=== PATIENT | male | born 1980 | race Caucasian/White ===

== ENCOUNTER 2024-08-12 14:18 | Emergency (ER) | payer OTHER, SELFPAY ==
[2024-08-12] VITALS (10 sets, daily range): BP systolic 119–137; BP diastolic 68–94; PULSE 95–111; TEMP 37.6–37.7; O2SAT 98–100; BMI 33.7
--- NOTE | 2024-08-12 14:40 | ECG_ITS ---
[facility] Test Date: 2024-08-12 Pat Name: LUISA HOWELL Department: Room: - Gender: Male [employer]: : 1980 Requested By: [id number] Order Number: [id number] Reading MD: MEJIA DUNN M.D. Measurements Intervals [place] Rate: 100 P: 42 LA: 166 QRS: 33 QRSD: 166 T: 16 QT: 368 QTc: 425 Interpretive Statements 1120 Sinus tachycardia 2450 Right bundle branch block 9150 abnormal ECG Compared to ECG 05/30/2020 14:03:26 Sinus arrhythmia no longer present Short LA interval no longer present Electronically Signed On 08-12-2024 17:17:17 EDT by MEJIA DUNN M.D.
--- NOTE | 2024-08-12 14:43 | ED_ITS ---
HPI HPI - General Adult General Chief complaint: Dizziness Stated complaint: NAUSEA VISION BLURRY WEAKNESS Time Seen by Provider: 08/12/24 14:35 Source: patient Mode of arrival: walk-in Limitations: no limitations History of Present Illness HPI narrative: 44-year-old male presents to the emergency department for several symptoms. His chief complaint is dizziness. He states this started about 10:00 and he has some pressure on the back of his head. No palpitations fever or vomiting. He is seeing a surgeon about a cyst on his back and surgery is planned in a month. No fever. He states his abdomen does not feel right, he states its sort of like nausea but he is not nauseous. He does not have any abdominal pain. No fever or cough or chest pain or shortness of breath or palpitations. Related Data Allergies Allergy/AdvReac Type Severity Reaction Status Date / Time acetaminophen (From Vicodin) AdvReac Mild Rash Verified 08/12/24 14:27 hydrocodone (From Vicodin) AdvReac Mild Rash Verified 08/12/24 14:27 Opioid HPI Opioid Management Most Recent Opioid Data: Last Pain Scale 5 08/12/24 17:01 08/12/24 Last MAR Pain Assessment 08/12/24 17:01 Review of Systems ROS Narrative A ten point review of systems is negative except as noted above. PFSH PFSH Social History Little interest or pleasure in doing things: not at all Feeling down, depressed, or hopeless: not at all Exam Narrative Exam Narrative: Nurses note and vital signs reviewed and patient is not hypoxic. General: The patient appears well and in no apparent distress. Patient is resting comfortably on cart. Skin: Warm, dry, no pallor noted. There is no rash noted. On his back is an area that is erythematous and mildly swollen. There is an open area and a small amount of purulent drainage Head: Normocephalic, atraumatic Eye: Normal conjunctiva, no drainage Ears, Nose, Mouth, and Throat: oral mucosa is moist. Nares patent. Cardiovascular: Regular Rate and Rhythm Respiratory: Patient is in no distress, no accessory muscle use, lungs are clear to auscultation, no wheezing, rales or rhonchi Back: no CVA tenderness bilaterally to percussion. GI: Soft and nontender Musculoskeletal: The patient has no evidence of calf tenderness, no pitting edema, symmetrical pulses noted bilaterally Neurological: A&O, normal speech; upper and lower extremity strength intact and symmetric Psychiatric: Cooperative Constitutional Vital Signs, click to edit/add: Last Vital Signs Temp 99.8 F 08/12/24 15:04 Pulse 111 H 08/12/24 14:24 Resp 18 08/12/24 14:24 BP 137/94 H 08/12/24 14:24 Pulse Ox 98 08/12/24 14:24 O2 Del Method Room Air 08/12/24 14:24 Course Vital Signs Vital signs: Vital Signs Temperature 99.6 F 08/12/24 14:24 Pulse Rate 111 H 08/12/24 14:24 Respiratory Rate 18 08/12/24 14:24 Blood Pressure 137/94 H 08/12/24 14:24 Pulse Oximetry 98 08/12/24 14:24 Oxygen Delivery Method Room Air 08/12/24 14:24 Temperature 99.8 F 08/12/24 15:04 Pulse Rate 111 H 08/12/24 14:24 Respiratory Rate 18 08/12/24 14:24 Blood Pressure 137/94 H 08/12/24 14:24 Pulse Oximetry 98 08/12/24 14:24 Oxygen Delivery Method Room Air 08/12/24 14:24 Medical Decision Making MDM Narrative Medical decision making narrative: His workup here is negative including CT of the brain. Carbon oxide level is 2.4, he is a smoker, and this is not elevated. The rest of his workup as well as negative and he is discharged home. I have no suspicion of the cyst on his back causing any of his symptoms. He is on an antibiotic and I have no suspicion clinically of sepsis. Treatment diagnosis and follow-up were discussed with the patient. Differential Diagnosis Differential Diagnosis: Carbon oxide, intracranial hemorrhage, anemia, acute kidney injury Lab Data Lab results reviewed: Yes I reviewed the patient's lab results Labs: Lab Results 08/12/24 08/12/24 08/12/24 Range/Units 14:35 15:45 17:05 WBC 9.8 (4.0-11.0) 10^3/uL RBC 5.05 (4.70-6.10) 10^6/uL Hgb 14.8 (14.0-18.0) g/dL Hct 45.0 (42.0-54.0) % MCV 89.1 (80.0-94.0) fL MCH 29.3 (25.9-34.0) pg MCHC 32.9 (29.9-35.2) g/dL RDW 12.7 (11.0-15.0) % Plt Count 275 (150-450) 10^3/uL MPV 9.0 L (9.5-13.5) fL Seg Neuts % (Manual) 89.0 H (43.0-75.0) Lymphocytes % (Manual) 8.0 L (20.5-60.0) % Monocytes % (Manual) 2.0 (1.7-12.0) % Eosinophils % (Manual) 1.0 (0.9-7.0) % Basophils % (Manual) 0.0 L (0.2-2.0) % Neutrophils # (Manual) 8.72 H (1.4-6.5) 10^3/uL Lymphocytes # (Manual) 0.78 L (1.20-3.80) 10^3/uL Monocytes # (Manual) 0.19 L (0.30-0.80) 10^3/uL Eosinophils # (Manual) 0.09 (0.00-0.70) 10^3/uL Basophils # (Manual) 0.00 (0.00-0.10) 10^3/uL Puncture Site Left radial ABG pH (7.350-7.450) ABG pCO2 (35.0-45.0) mmHg ABG pO2 (80.0-100.0) mmHg ABG HCO3 (22.0-26.0) mmol/L ABG O2 Saturation % ABG Base Excess (-2.0-2.0) mmol/L ABG Methemoglobin (1.1-1.9) % [place]os Test (POSITIVE) Carboxyhemoglobin (1.5-4.9) % FiO2 % Sodium 137 (136-145) mmol/L Potassium 3.9 (3.5-5.1) mmol/L Chloride 100 (98-107) mmol/L Carbon Dioxide 27.4 (21.0-32.0) mmol/L Anion Gap 13.5 BUN 10.0 (7.0-18.0) mg/dL Creatinine 1.02 (0.70-1.30) mg/dL Est GFR ( Amer) >60 (>=60 mL/min/1.73m^2) Est GFR (Non-Af Amer) >60 (>=60 mL/min/1.73m^2) BUN/Creatinine Ratio 9.8 Glucose 91 (74-106) mg/dL Calcium 9.0 (8.5-10.1) mg/dL Troponin I High Sens 4.5 (4.0-76.1) pg/mL Urine Color Yellow (YELLOW) Urine Clarity Clear (CLEAR) Urine pH 6.5 (5.0-9.0) Ur Specific [place] 1.020 (1.005-1.025) Urine Protein Negative (NEG/TRACE) mg/dL Urine Glucose (UA) Negative (NEGATIVE) mg/dL Urine Ketones Negative (NEGATIVE) mg/dL Urine Occult Blood Negative (NEGATIVE) Urine Nitrite Negative (NEGATIVE) Urine Bilirubin Negative (NEGATIVE) Urine Urobilinogen 0.2 (0.2-1.0) EU/dL Ur Leukocyte Esterase Negative (NEGATIVE) Urine RBC None seen (0-2) #/HPF Urine WBC None seen (NONE SEEN) #/HPF Ur Squamous Epith Cells None seen (NONE/RARE) #/LPF Urine Crystals None seen (None Seen) #/HPF Urine Bacteria None seen (NONE SEEN) #/HPF Urine Casts None seen (NONE SEEN) #/LPF Urine Mucus Trace A (NONE SEEN) Ur Culture Indicated? No Influenza Type A Ag Negative Influenza Type B Ag Negative SARS-CoV-2 Ag (CV2AG) Negative (NEGATIVE) 08/12/24 08/12/24 08/12/24 Range/Units 17:05 17:05 17:05 WBC (4.0-11.0) 10^3/uL RBC (4.70-6.10) 10^6/uL Hgb (14.0-18.0) g/dL Hct (42.0-54.0) % MCV (80.0-94.0) fL MCH (25.9-34.0) pg MCHC (29.9-35.2) g/dL RDW (11.0-15.0) % Plt Count (150-450) 10^3/uL MPV (9.5-13.5) fL Seg Neuts % (Manual) (43.0-75.0) Lymphocytes % (Manual) (20.5-60.0) % Monocytes % (Manual) (1.7-12.0) % Eosinophils % (Manual) (0.9-7.0) % Basophils % (Manual) (0.2-2.0) % Neutrophils # (Manual) (1.4-6.5) 10^3/uL Lymphocytes # (Manual) (1.20-3.80) 10^3/uL Monocytes # (Manual) (0.30-0.80) 10^3/uL Eosinophils # (Manual) (0.00-0.70) 10^3/uL Basophils # (Manual) (0.00-0.10) 10^3/uL Puncture Site Left radial ABG pH 7.485 H 7.485 H (7.350-7.450) ABG pCO2 30.6 L 30.6 L (35.0-45.0) mmHg ABG pO2 75.3 L (80.0-100.0) mmHg ABG HCO3 (22.0-26.0) mmol/L ABG O2 Saturation % ABG Base Excess (-2.0-2.0) mmol/L ABG Methemoglobin (1.1-1.9) % Calos Test (POSITIVE) Carboxyhemoglobin (1.5-4.9) % FiO2 % Sodium (136-145) mmol/L Potassium (3.5-5.1) mmol/L Chloride (98-107) mmol/L Carbon Dioxide (21.0-32.0) mmol/L Anion Gap BUN (7.0-18.0) mg/dL Creatinine (0.70-1.30) mg/dL Est GFR ( Amer) (>=60 mL/min/1.73m^2) Est GFR (Non-Af Amer) (>=60 mL/min/1.73m^2) BUN/Creatinine Ratio Glucose (74-106) mg/dL Calcium (8.5-10.1) mg/dL Troponin I High Sens (4.0-76.1) pg/mL Urine Color (YELLOW) Urine Clarity (CLEAR) Urine pH (5.0-9.0) Ur Specific [place] (1.005-1.025) Urine Protein (NEG/TRACE) mg/dL Urine Glucose (UA) (NEGATIVE) mg/dL Urine Ketones (NEGATIVE) mg/dL Urine Occult Blood (NEGATIVE) Urine Nitrite (NEGATIVE) Urine Bilirubin (NEGATIVE) Urine Urobilinogen (0.2-1.0) EU/dL Ur Leukocyte Esterase (NEGATIVE) Urine RBC (0-2) #/HPF Urine WBC (NONE SEEN) #/HPF Ur Squamous Epith Cells (NONE/RARE) #/LPF Urine Crystals (None Seen) #/HPF Urine Bacteria (NONE SEEN) #/HPF Urine Casts (NONE SEEN) #/LPF Urine Mucus (NONE SEEN) Ur Culture Indicated? Influenza Type A Ag Influenza Type B Ag SARS-CoV-2 Ag (CV2AG) (NEGATIVE) 08/12/24 08/12/24 08/12/24 Range/Units 17:05 17:05 17:05 WBC (4.0-11.0) 10^3/uL RBC (4.70-6.10) 10^6/uL Hgb (14.0-18.0) g/dL Hct (42.0-54.0) % MCV (80.0-94.0) fL MCH (25.9-34.0) pg MCHC (29.9-35.2) g/dL RDW (11.0-15.0) % Plt Count (150-450) 10^3/uL MPV (9.5-13.5) fL Seg Neuts % (Manual) (43.0-75.0) Lymphocytes % (Manual) (20.5-60.0) % Monocytes % (Manual) (1.7-12.0) % Eosinophils % (Manual) (0.9-7.0) % Basophils % (Manual) (0.2-2.0) % Neutrophils # (Manual) (1.4-6.5) 10^3/uL Lymphocytes # (Manual) (1.20-3.80) 10^3/uL Monocytes # (Manual) (0.30-0.80) 10^3/uL Eosinophils # (Manual) (0.00-0.70) 10^3/uL Basophils # (Manual) (0.00-0.10) 10^3/uL Puncture Site ABG pH (7.350-7.450) ABG pCO2 (35.0-45.0) mmHg ABG pO2 75.3 L (80.0-100.0) mmHg ABG HCO3 23.1 23.1 (22.0-26.0) mmol/L ABG O2 Saturation 75.3 96.9 % ABG Base Excess -0.3 (-2.0-2.0) mmol/L ABG Methemoglobin (1.1-1.9) % Calos Test (POSITIVE) Carboxyhemoglobin (1.5-4.9) % FiO2 % Sodium (136-145) mmol/L Potassium (3.5-5.1) mmol/L Chloride (98-107) mmol/L Carbon Dioxide (21.0-32.0) mmol/L Anion Gap BUN (7.0-18.0) mg/dL Creatinine (0.70-1.30) mg/dL Est GFR ( Amer) (>=60 mL/min/1.73m^2) Est GFR (Non-Af Amer) (>=60 mL/min/1.73m^2) BUN/Creatinine Ratio Glucose (74-106) mg/dL Calcium (8.5-10.1) mg/dL Troponin I High Sens (4.0-76.1) pg/mL Urine Color (YELLOW) Urine Clarity (CLEAR) Urine pH (5.0-9.0) Ur Specific [place] (1.005-1.025) Urine Protein (NEG/TRACE) mg/dL Urine Glucose (UA) (NEGATIVE) mg/dL Urine Ketones (NEGATIVE) mg/dL Urine Occult Blood (NEGATIVE) Urine Nitrite (NEGATIVE) Urine Bilirubin (NEGATIVE) Urine Urobilinogen (0.2-1.0) EU/dL Ur Leukocyte Esterase (NEGATIVE) Urine RBC (0-2) #/HPF Urine WBC (NONE SEEN) #/HPF Ur Squamous Epith Cells (NONE/RARE) #/LPF Urine Crystals (None Seen) #/HPF Urine Bacteria (NONE SEEN) #/HPF Urine Casts (NONE SEEN) #/LPF Urine Mucus (NONE SEEN) Ur Culture Indicated? Influenza Type A Ag Influenza Type B Ag SARS-CoV-2 Ag (CV2AG) (NEGATIVE) 08/12/24 08/12/24 08/12/24 Range/Units 17:05 17:05 17:05 WBC (4.0-11.0) 10^3/uL RBC (4.70-6.10) 10^6/uL Hgb (14.0-18.0) g/dL Hct (42.0-54.0) % MCV (80.0-94.0) fL MCH (25.9-34.0) pg MCHC (29.9-35.2) g/dL RDW (11.0-15.0) % Plt Count (150-450) 10^3/uL MPV (9.5-13.5) fL Seg Neuts % (Manual) (43.0-75.0) Lymphocytes % (Manual) (20.5-60.0) % Monocytes % (Manual) (1.7-12.0) % Eosinophils % (Manual) (0.9-7.0) % Basophils % (Manual) (0.2-2.0) % Neutrophils # (Manual) (1.4-6.5) 10^3/uL Lymphocytes # (Manual) (1.20-3.80) 10^3/uL Monocytes # (Manual) (0.30-0.80) 10^3/uL Eosinophils # (Manual) (0.00-0.70) 10^3/uL Basophils # (Manual) (0.00-0.10) 10^3/uL Puncture Site ABG pH (7.350-7.450) ABG pCO2 (35.0-45.0) mmHg ABG pO2 (80.0-100.0) mmHg ABG HCO3 (22.0-26.0) mmol/L ABG O2 Saturation % ABG Base Excess -0.3 (-2.0-2.0) mmol/L ABG Methemoglobin <1.0 L (1.1-1.9) % Calos Test Positive Positive (POSITIVE) Carboxyhemoglobin 2.4 (1.5-4.9) % FiO2 21 21 % Sodium (136-145) mmol/L Potassium (3.5-5.1) mmol/L Chloride (98-107) mmol/L Carbon Dioxide (21.0-32.0) mmol/L Anion Gap BUN (7.0-18.0) mg/dL Creatinine (0.70-1.30) mg/dL Est GFR ( Amer) (>=60 mL/min/1.73m^2) Est GFR (Non-Af Amer) (>=60 mL/min/1.73m^2) BUN/Creatinine Ratio Glucose (74-106) mg/dL Calcium (8.5-10.1) mg/dL Troponin I High Sens (4.0-76.1) pg/mL Urine Color (YELLOW) Urine Clarity (CLEAR) Urine pH (5.0-9.0) Ur Specific [place] (1.005-1.025) Urine Protein (NEG/TRACE) mg/dL Urine Glucose (UA) (NEGATIVE) mg/dL Urine Ketones (NEGATIVE) mg/dL Urine Occult Blood (NEGATIVE) Urine Nitrite (NEGATIVE) Urine Bilirubin (NEGATIVE) Urine Urobilinogen (0.2-1.0) EU/dL Ur Leukocyte Esterase (NEGATIVE) Urine RBC (0-2) #/HPF Urine WBC (NONE SEEN) #/HPF Ur Squamous Epith Cells (NONE/RARE) #/LPF Urine Crystals (None Seen) #/HPF Urine Bacteria (NONE SEEN) #/HPF Urine Casts (NONE SEEN) #/LPF Urine Mucus (NONE SEEN) Ur Culture Indicated? Influenza Type A Ag Influenza Type B Ag SARS-CoV-2 Ag (CV2AG) (NEGATIVE) Imaging Data CT scan - head: Radiologist's impression: No acute intracranial abnormality ECG Data Attestation: I personally reviewed and interpreted this ECG as follows: (EKG on my interpretation shows sinus rhythm with a rate of 100, right bundle branch block) Discharge Plan Discharge Chief Complaint: Dizziness Clinical Impression: Dizziness Patient Disposition: Home, Self-Care Time of Disposition Decision: 17:36 Condition: Good Mode of Transportation: Private Vehicle Print Language: Israeli Instructions: Dizziness (ED) Referrals: Dagmar Cheek MD [Primary Care Provider] - 1 week
[2024-08-12 14:51] LABS: Hemoglobin 14.8 g/dL (14.0-18.0); Mean Corpuscular HGB Conc 32.9 g/dL (29.9-35.2); Mean Corpuscular Hemoglobin 29.3 pg (25.9-34.0); Mean Corpuscular Volume 89.1 fL (80.0-94.0); Platelet Count 275 10^3/uL (150-450); Red Blood Count 5.05 10^6/uL (4.70-6.10); Red Cell Distribution Width 12.7 % (11.0-15.0); White Blood Count 9.8 10^3/uL (4.0-11.0)
[2024-08-12] MEDS: 0.9 % SODIUM CHLORIDE 1,000 ML 1000 ML IV (15:00)
[2024-08-12 15:03] LABS: Influenza Virus A Antigen Negative; Influenza Virus B Antigen Negative; Internal Control Within Normal Limits; SARS-CoV-2 Ag NEGATIVE (NEGATIVE)
[2024-08-12 15:13] LABS: Lymphocytes Absolute Manual 0.78 10^3/uL (1.20-3.80); Monocytes Absolute Manual 0.19 10^3/uL (0.30-0.80); Segmented Neut Absolute Manual 8.72 10^3/uL (1.4-6.5)
[2024-08-12 15:14] LABS: Eosinophils Absolute Manual 0.09 10^3/uL (0.00-0.70)
[2024-08-12 15:17] LABS: Anion Gap 13.5; BUN Creatinine Ratio 9.8; Carbon Dioxide 27.4 mmol/L (21.0-32.0); Chloride 100 mmol/L (98-107); Estimated GFR (African America >60 (>=60 mL/min/1.73m^2); Estimated GFR (Non-African Ame >60 (>=60 mL/min/1.73m^2); Glucose 91 mg/dL (74-106); Potassium 3.9 mmol/L (3.5-5.1); Sodium 137 mmol/L (136-145); Troponin I High Sensitivity 4.5 pg/mL (4.0-76.1)
[2024-08-12 15:54] LABS: Bilirubin Urine NEGATIVE (NEGATIVE); Blood Urine NEGATIVE (NEGATIVE); Clarity Urine CLEAR (CLEAR); Color Urine YELLOW (YELLOW); Glucose Urine UA NEGATIVE (NEGATIVE); Ketones Urine NEGATIVE (NEGATIVE); Leukocyte Esterase Urine NEGATIVE (NEGATIVE); Nitrite Urine NEGATIVE (NEGATIVE); Protein Urine NEGATIVE (NEG/TRACE); Urobilinogen Urine 0.2 EU/dL (0.2-1.0); pH Urine 6.5 (5.0-9.0)
[2024-08-12 16:07] LABS: Bacteria Urine NONE SEEN #/HPF (NONE SEEN); Cast Seen? NONE SEEN #/LPF (NONE SEEN); Crystals Seen? None Seen #/HPF (None Seen); Mucus Urine TRACE (NONE SEEN); RBC Urine NONE SEEN #/HPF (0-2); Squamous Epithelial Cell Urine NONE SEEN #/LPF (NONE/RARE); Urine Culture Indicated NO; WBC Urine NONE SEEN #/HPF (NONE SEEN)
[2024-08-12] MEDS: KETOROLAC TROMETHAMINE 30 MG/ML VIAL IVP (17:01)
[2024-08-12] MEDS: ONDANSETRON PF 4 MG/2 ML VIAL IV (17:01)
[2024-08-12 17:11] LABS: ABG PCO2 30.6 mmHg (35.0-45.0); Allen Test POSITIVE (POSITIVE); Base Excess ABG -0.3 mmol/L (-2.0-2.0); HCO3 ABG 23.1 mmol/L (22.0-26.0); O2 Mode RA; PO2 ABG 75.3 mmHg (80.0-100.0); pH ABG 7.485 (7.350-7.450)
[2024-08-12 17:12] LABS: Fractionated Inspired Oxygen 21 %; Puncture Site LEFT RADIAL
[2024-08-12 17:26] LABS: ABG PCO2 30.6 mmHg (35.0-45.0); Base Excess ABG -0.3 mmol/L (-2.0-2.0); HCO3 ABG 23.1 mmol/L (22.0-26.0); Oxygen Saturation ABG 96.9 %; PO2 ABG 75.3 mmHg (80.0-100.0); pH ABG 7.485 (7.350-7.450)
[2024-08-12 17:27] LABS: Allen Test POSITIVE (POSITIVE); Carboxyhemoglobin 2.4 % (1.5-4.9); Methemoglobin ABG <1.0 % (1.1-1.9)
[2024-08-12 17:28] LABS: O2 Mode RA
[2024-08-12 17:29] LABS: Fractionated Inspired Oxygen 21 %
[2024-08-12 17:30] LABS: Puncture Site LEFT RADIAL
[2024-08-13 13:59] LABS: Oxygen Saturation ABG 96.9 %
== END 2024-08-12 17:46 | disposition home or self-care (01) ==
PROVIDERS: Emergency Provider Emergency Medicine; PCP Family Medicine
DX: R42 Dizziness and giddiness (principal)
CPT/HCPCS: 36415; 36600; 70450; 80048; 81001; 82375; 82805; 83050; 84484; 85007; 85027; 87804; 87811; 93005; 96361; 96374; 96375; 99285; J1885; J2405